=== PATIENT | male | born 1975 | race Caucasian/White ===

== ENCOUNTER 2018-11-28 13:51 | Emergency (ER) | payer SELFPAY ==
[2018-11-28] MEDS ORDERED: Aspirin 81 mg CHEW TAB* 81 MG TAB.CHEW PO ONE (14:22)
--- NOTE | 2018-11-28 14:32 | UC ---
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 about shelter there, he pulled over and took a nap. 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 they splashed him with cool water. a son of one of the coaches drove him here. he states "I think I was drinking enough". he admits to having some mild cramping in the thighs. he denies cp, sob and diarrhea. BP at triage was 200/114 and pt admits to HTN and but has not taken his medications for a couple of days because they are at home. - History of Current Complaint Chief Complaint: UCGeneralIllness Stated Complaint: HEAT EXHAUSTION Time Seen by Provider: 11/28/18 13:59 Hx Obtained From: Patient Hx From Patient Unobtainable Due To: Other - pt is vague and becomes agitated with attempts to gain indepth hx. Timing: Constant Pain Intensity: 0 Associated Signs & Symptoms: Negative: Abdominal Pain, Cough, Chest Pain, Headache, SOB - Allergy/Home Medications Allergies/Adverse Reactions: Allergies Allergy/AdvReac Type Severity Reaction Status Date / Time No Known Allergies Allergy Verified 11/28/18 13:59 Home Medications: Home Medications Atenolol/Chlorthalidone [Atenolol/Chlorthalidone 100-25 mg-] 1 tab PO DAILY [History Confirmed 11/28/18] Atorvastatin* [Lipitor*] 40 mg PO DAILY 11/28/18 [History Confirmed 11/28/18] Citalopram TAB* [CeleXA TAB*] 20 mg PO DAILY 11/28/18 [History Confirmed ] Diclofenac Sodium EC TAB* [Voltaren EC TAB*] 25 mg PO BID 11/28/18 [History Confirmed 11/28/18] Ergocalciferol (Vitamin D2) [Vitamin D2] 50 mcg PO WE 11/28/18 [History Confirmed 11/28/18] HYDROcodone/ACETAMIN 5-325 MG* [[place] 5-325 TAB*] 1 tab PO Q6H PRN 11/28/18 [ History Confirmed 11/28/18] Levothyroxine TAB* [Synthroid TAB*] 75 mcg PO DAILY 11/28/18 [History Confirmed 11/28/18] Losartan Potassium 100 mg PO DAILY 11/28/18 [History Confirmed 11/28/18] Spironolactone TAB* [Aldactone TAB*] 25 mg PO BID 11/28/18 [History Confirmed ] amLODIPine TAB* [Norvasc 5 mg TAB*] 10 mg PO DAILY 11/28/18 [History Confirmed 11/28/18] hydrALAZINE TAB* [Apresoline TAB*] 50 mg PO TID 11/28/18 [History Confirmed ] PMH/Surg Hx/FS Hx/Imm Hx - Additional Past Medical History Additional PMH: Back pain. Endocrine History: Thyroid Disease, Dyslipidemia Cardiovascular History: Hypertension - Surgical History Surgical History: None - Family History Known Family History: Positive: Unknown - pt agitated and cites can't recall - Social History Lives: With Family Alcohol Use: Occasionally Substance Use Type: None Smoking Status (MU): Never Smoked Tobacco Review of Systems All Other Systems Reviewed And Are Negative: Yes Constitutional: Positive: Fatigue. Negative: Fever Respiratory: Negative: Shortness Of Breath, Cough Cardiovascular: Negative: Palpitations, Chest Pain Gastrointestinal: Positive: Vomiting. Negative: Abdominal Pain, Diarrhea, Nausea Musculoskeletal: Positive: Other: - MM CRAMPS TO THIGHS Physical Exam Triage Information Reviewed: Yes Appearance: Well-Appearing Vital Signs: Initial Vital Signs Temp 98.3 F 11/28/18 13:55 Pulse 72 11/28/18 13:55 Resp 16 11/28/18 13:55 BP 200/114 11/28/18 13:55 Pulse Ox 99 11/28/18 13:55 Vital Signs Reviewed: Yes Eyes: Positive: Conjunctiva Clear, Other: - PERRL, EOMI ENT: Positive: Pharynx normal, TMs normal, Other - Lips and tonue look dry.. Negative: Nasal congestion, Nasal drainage Neck: Positive: Supple, Nontender, No Lymphadenopathy Respiratory: Positive: Lungs clear, Normal breath sounds, No respiratory distress Cardiovascular: Positive: RRR - with extra beats, No Murmur, Pulses Normal. Negative: Tachycardia Abdomen Description: Positive: Nontender, No Organomegaly, Soft Bowel Sounds: Positive: Present Musculoskeletal: Positive: ROM Intact, Edema @ Neurological: Positive: Other: - Alert and oriented. CN 2-12 grossly intact. Gross s/v/m intactx4. steady gait to the exam room. Psychological: Positive: Other: - easily agitated by questioning. Skin Exam: Other - Flushed and warm. 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 Skin: Negative: Rashes Diagnostics - Laboratory Lab Results: FS [id number] - EKG Cardiac Rate: NL Cardiac Rhythm: Sinus: Normal Ectopy: PVCs - ST elevation V2, V3. Twave inversion V4-V6. ST Segment: Non-Specific Summary of EKG Findings: ST elevation V2, V3. T wave inversion V4-V6. Course/Dx - Course Course Of Treatment: EKG D/W Dr Ramires. Given the pt's BP, ST changes and PVC's on Ekg plus current s/s's Dr Ramires suggests transfer to a facility with a laboratory technician. At pt request, I spoke to his on his cell phone and she request he go to [facility] where they have family close by. Pt agrees with this as well. [facility] [place]. charge nurse not available thus report given to one of the ER floor nurses. i advised of hx, PE and EKG results plus pt coming via [facility]. - Differential Dx - Multi-Symptom Differential Diagnoses: Other - hypertensive urgency, heat related illness, cardiac pathology. - Diagnoses Provider Diagnosis: Hypertension, uncontrolled, Fatigue, Vomiting, Abnormal EKG Discharge - Sign-Out/Discharge Documenting (check all that apply): Patient Departure All imaging exams completed and their final reports reviewed: No Studies - Discharge Plan Condition: Stable Disposition: TRANS HIGHER LVL OF CARE FAC Referrals: Camacho Clark MD [Medical Doctor] - - Billing Disposition and Condition Condition: STABLE Disposition: Trans Higher Lvl of Care Fac - Attestation Statements Provider Attestation: I was available for consult. This patient was seen by the VISHAL. The patient was not presented to and plan of care including EKG was discussed with me . Patient was not seen by or examined by me . Patient transferred to ER via ambulance. -Fnu MD Keyla
[2018-11-28 14:38] VITALS: BP 210/124
[2018-11-28] MEDS ORDERED: Aspirin 81 mg CHEW TAB* 81 MG TAB.CHEW ONE (14:46)
== END 2018-11-28 14:38 | disposition short-term general hospital (02) ==
LOC: UCCORT 13:51
DX: I10 Essential (primary) hypertension (principal); R53.83 Other fatigue; R11.10 Vomiting, unspecified; R94.31 Abnormal electrocardiogram [ECG] [EKG]; E07.9 Disorder of thyroid, unspecified; Z91.14 Patient's other noncompliance with medication regimen
CPT/HCPCS: 93005; 99203; A9270-GY; G0463

== ENCOUNTER 2018-11-28 15:25 | Emergency (ER) | payer SELFPAY ==
[2018-11-28] MEDS ORDERED: amLODIPine TAB* 5 MG PO ONE (16:44)
[2018-11-28] MEDS ORDERED: NS 0.9% 1000 ML** 2,000 ML IV ONE (16:44)
[2018-11-28] MEDS ORDERED: hydrALAZINE IV* 20 MG/ML VIAL IV SLOW PU ONE (17:17)
[2018-11-28 17:28] LABS: ABS Basophils 0.1 10^3/ul (0-0.2); ABS Eosinophils 0.2 10^3/ul (0-0.6); ABS Lymphocytes 2.2 10^3/ul (1.0-4.8); ABS Monocytes 0.4 10^3/ul (0-0.8); ABS Neutrophils 4.7 10^3/ul (1.5-7.7); Eosinophil % 2.2 %; Hematocrit 46 % (42-52); Hemoglobin 16.2 g/dL (14.0-18.0); Lymphocyte % 28.8 %; Mean Corpuscular HGB Conc 35 g/dL (31-36); Mean Corpuscular Hemoglobin 30 pg (27-31); Mean Corpuscular Volume 86 fL (80-94); Mean Platelet Volume 10.4 fL (7.4-10.4); Nucleated Red Blood Cells % 0.1; Platelet Count 218 10^3/uL (150-450); Red Cell Distribution Width 15 % (10-15); White Blood Count 7.5 10^3/uL (3.5-10.8)
[2018-11-28 17:36] LABS: Activated Partial Thrombo Time 34.3 seconds (26.0-38.0); INR 0.99 (0.82-1.09)
--- NOTE | 2018-11-28 17:37 | ED ---
Hypertension - HPI Summary HPI Summary: Pt is a 43 y/o M presenting to the ED with a chief complaint of HTN. 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 He denies CP , dizziness, MILLAN, speech changes, visual changes, AMS, myalgia, abd pain, as well as hx of CVA or NH. Vital signs while in room: BP 203/121, HR 77bpm, SaO2 98% on room air. Home Medications Medication Instructions Recorded Confirmed Type Atenolol/Chlorthalidone 1 tab PO DAILY 11/28/18 11/28/18 History [Atenolol/Chlorthalidone 100-25 mg-] Atorvastatin* [Lipitor*] 40 mg PO DAILY 11/28/18 11/28/18 History Citalopram TAB* [CeleXA TAB*] 20 mg PO DAILY 11/28/18 11/28/18 History Diclofenac Sodium EC TAB* 25 mg PO BID 11/28/18 11/28/18 History [Voltaren EC TAB*] Ergocalciferol (Vitamin D2) 50 mcg PO WE 11/28/18 11/28/18 History [Vitamin D2] HYDROcodone/ACETAMIN 5-325 MG* 1 tab PO Q6H PRN 11/28/18 11/28/18 History [[place] 5-325 TAB*] Levothyroxine TAB* [Synthroid TAB*] 75 mcg PO DAILY 11/28/18 11/28/18 History Losartan Potassium 100 mg PO DAILY 11/28/18 11/28/18 History Spironolactone TAB* [Aldactone 25 mg PO BID 11/28/18 11/28/18 History TAB*] amLODIPine TAB* [Norvasc 5 mg TAB*] 10 mg PO DAILY 11/28/18 11/28/18 History hydrALAZINE TAB* [Apresoline TAB*] 50 mg PO TID 11/28/18 11/28/18 History - History of Current Complaint Chief Complaint: EDDysrhythmPalp Stated Complaint: "HEAT RELATED PER EMS" Hx Obtained From: Patient Onset/Duration: Started Hours Ago, Resolved Timing: Intermittent, Lasting Minutes Aggravating Factor(s): Nothing Alleviating Factor(s): Other - cool water Associated Signs & Symptoms: Negative - Allergies/Home Medications Allergies/Adverse Reactions: Allergies Allergy/AdvReac Type Severity Reaction Status Date / Time No Known Allergies Allergy Verified 11/28/18 13:59 PMH/Surg Hx/FS Hx/Imm Hx Previously Healthy: Yes Endocrine/Hematology History: Reports: Hx Thyroid Disease Cardiovascular History: Reports: Hx Hypertension - Surgical History Surgical History: Yes Surgery Procedure, Year, and Place: appendectomy, broken arm Infectious Disease History: No Infectious Disease History: Denies: Traveled Outside the [place] in Last 30 Days - Family History Known Family History: Negative: Hypertension - Social History Alcohol Use: Occasionally Hx Substance Use: No Substance Use Type: Reports: None Hx Tobacco Use: No Smoking Status (MU): Never Smoked Tobacco Review of Systems Negative: Chest Pain Positive: Vomiting, Nausea. Negative: Abdominal Pain Negative: Myalgia Neurological: Negative - dizziness Negative: Headache All Other Systems Reviewed And Are Negative: Yes Physical Exam - Summary Physical Exam Summary: Appearance: Ill-appearing, moderate pain distress, well-nourished Skin: Warm, color reflects adequate perfusion, dry Head: Normal Head/Face inspection, atraumatic Eyes: Conjunctiva clear ENT: Normal inspection Neck: Supple, no nodes, no JVD Respiratory: Lungs clear, normal breath sounds, no respiratory distress Cardio: RRR, No murmur, pulses normal, brisk capillary refill Abdomen: Soft, nontender Bowel sounds: Present Musculoskeletal: Strength Intact/ROM intact, no calf tenderness, no edema. Psychological: Normal Neuro: Alert, muscle tone normal, no focal deficit Triage Information Reviewed: Yes Vital Signs On Initial Exam: Initial Vitals Pulse Pulse Ox 65 98 11/28/18 15:29 11/28/18 15:29 Vital Signs Reviewed: Yes Diagnostics - Vital Signs Vital Signs Temp Pulse Resp BP Pulse Ox 11/28/18 17:14 97 11/28/18 17:01 63 16 99 11/28/18 16:31 15 203/121 11/28/18 16:01 63 14 182/117 95 11/28/18 15:32 60 13 211/126 96 11/28/18 15:30 98.8 F 65 20 211/126 96 11/28/18 15:29 65 98 - Laboratory Lab Results: Lab Results 07/21/19 Range/Units 17:20 WBC 7.5 (3.5-10.8) 10^3/uL RBC 5.40 (4.18-5.48) 10^6 /uL Hgb 16.2 (14.0-18.0) g/dL Hct 46 (42-52) % MCV 86 (80-94) fL MCH 30 (27-31) pg MCHC 35 (31-36) g/dL RDW 15 (10-15) % Plt Count 218 (150-450) 10^3/uL MPV 10.4 (7.4-10.4) fL Neut % (Auto) 62.6 % Lymph % (Auto) 28.8 % [place] % (Auto) 5.5 % Eos % (Auto) 2.2 % Baso % (Auto) 0.9 % Absolute Neuts (auto) 4.7 (1.5-7.7) 10^3/ul Absolute Lymphs (auto) 2.2 (1.0-4.8) 10^3/ul Absolute Monos (auto) 0.4 (0-0.8) 10^3/ul Absolute Eos (auto) 0.2 (0-0.6) 10^3/ul Absolute Basos (auto) 0.1 (0-0.2) 10^3/ul Absolute Nucleated RBC 0.0 10^3/ul Nucleated RBC % 0.1 Result Diagrams: 11/28/18 17:20 11/28/18 17:20 Lab Statement: Any lab studies that have been ordered have been reviewed, and results considered in the medical decision making process. - Radiology CXR Radiology Interpretation Completed By: ED Physician Summary of Radiographic Findings: No acute disease, pending official radiology report. - CT Brain CT CT Interpretation Completed By: Radiologist Summary of CT Findings: No acute intracranial mass or hemorrhage is noted. ED physician has reviewed this report. - EKG 1848 Cardiac Rate: NL - 65bpm EKG Rhythm: 1st Degree HB ST Segment: Non-Specific Ectopy: None EKG Comparison: No Significant Change Summary of EKG Findings: EKG at 1848 shows NSR 65 1st deg AV block (204), prolonged IV CT (112), nml QTc, and nml axis. No acute changes. No change from earlier today at 14:10 or from 04/12/07. ED MD has reviewed and interpreted this EKG. Re-Evaluation - Re-Evaluation First Eval Re-Evaluation Time: 18:30 Change: Unchanged Comment: BP remains elevated but pt remains asymptomatic. Has not had full 2 L of hydration, and face is still flushed, and pt is c/o chills. Will give metoprolol as pt missed he usual dose of atenolol/chlorthalidone. Will continue hydration. remains with pt. Will sign pt out to Dr. Lal for continued evaluation at change of shift. Hypertension Course/Dx - Course Course Of Treatment: Pt is a 43 y/o M presenting to the ED with a chief complaint of HTN. 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 He denies CP, dizziness, MILLAN, speech changes, AMS, myalgia, abd pain , as well as hx of CVA or NH. Vital signs while in room: BP 203/121, HR 77bpm, SaO2 98% on room air. Pt's physical exam is nml. His blood pressure is high, and his sx correlate with a hypertensive emergency. Brain CT shows no acute intracranial mass or hemorrhage. CXR shows no acute disease, pending official radiology report. EKG at 1848 shows NSR 65 1st deg AV block (204), prolonged IV CT (112), nml QTc, and nml axis. No acute changes. No change from earlier today at 14:10 or from 04/12/07. ED MD has reviewed and interpreted this EKG. Pt will be signed out to Dr. Lal at 1900 on 11/28/18 pending blood pressure returning to more normal levels for him and for continuing hydration. - Diagnoses Differential Diagnosis/HQI PQRI: Cerebral Bleed, Hypertensive Crisis, Other - heat stroke Provider Diagnoses: Heat exhaustion, Hypertensive urgency, Hypokalemia, Elevated troponin - Critical Care Time Critical Care Time: 30-74 min Discharge - Sign-Out/Discharge Documenting (check all that apply): Sign-Out Patient - BP stabilization Signing out patient TO: Anjelica Lal - 11/28/18, 190 - Discharge Plan Condition: Stable Disposition: HOME Patient Education Materials: Heat Exhaustion (ED) Referrals: Camacho Clark MD [Primary Care Provider] - 3 Days Additional Instructions: Follow up with primary care provider within 3 days. PLEASE RETURN TO THE ED IMMEDIATELY FOR WORSENING OR CONCERNING SYMPTOMS. - Billing Disposition and Condition Condition: STABLE Disposition: Home - Attestation Statements Document Initiated by Danielaibalex: Yes Documenting Scribe: Deepthi Mathis Provider For Whom Cassidy is Documenting (Include Credential): Dr. Augusta Causey MD. Scribe Attestation: Deepthi Smith, scribed for Dr. Augusta Causey MD. on 11/28/18 at 2240. Scribe Documentation Reviewed: Yes Provider Attestation: The documentation as recorded by the danielaibDeepthi johnson accurately reflects the service I personally performed and the decisions made by me, Dr. Augusta Causey MD. Status of Scribe Document: Viewed
[2018-11-28 17:45] LABS: ALT 40 U/L (7-52); AST 29 U/L (13-39); Albumin 4.9 g/dL (3.2-5.2); Albumin/Globulin Ratio 1.8 (1-3); Alkaline Phosphatase 35 U/L (34-104); Anion Gap 10 mmol/L (2-11); BUN/Creatinine Ratio 16.7 (8-20); Blood Urea Nitrogen 16 mg/dL (6-24); CO2 Carbon Dioxide 29 mmol/L (22-32); Calcium 10.7 mg/dL (8.6-10.3); Chloride 99 mmol/L (101-111); Creatine Kinase 383 U/L (10-223); EGFR African American 104.4 (>60); EGFR Non-African American 86.3 (>60); Globulin 2.8 g/dL (2-4); Glucose 113 mg/dL (70-100); Potassium 3.2 mmol/L (3.5-5.0); Sodium 138 mmol/L (135-145); Total Protein 7.7 g/dL (6.4-8.9)
[2018-11-28 17:45] LABS: Urine Appearance Clear; Urine Bacteria Absent (Absent); Urine Bilirubin Negative (Negative); Urine Blood Negative (Negative); Urine Color Straw; Urine Glucose Negative (Negative); Urine Ketones Negative (Negative); Urine Nitrite Negative (Negative); Urine Protein 1+(30 mg/dL) (Negative); Urine Red Blood Cell Trace(0-2/hpf) (Absent); Urine Specific Gravity 1.006 (1.010-1.030); Urine Urobilinogen Negative (Negative); Urine White Blood Cell Trace(0-5/hpf) (Absent)
[2018-11-28 17:50] LABS: CKMB ng/mL 4.7 ng/mL (0.6-6.3)
[2018-11-28 17:53] LABS: Troponin I 0.04 ng/mL (<0.04)
[2018-11-28] MEDS ORDERED: Metoprolol Tartrate IV* 1 MG/ML 5 ML VIAL IV ONE (18:27)
[2018-11-28] MEDS ORDERED: HYDROcodone/ACETAMIN 5-325 MG* 1 TAB PO ONE (20:18)
[2018-11-28] MEDS ORDERED: Potassium Chlor TAB* 20 MEQ TAB.ER PO ONE (20:35)
--- NOTE | 2018-11-28 20:39 | ED ---
Progress - Progress Note Progress Note: Patient is a sign out from Dr. Causey to Dr. Lal waiting on blood pressure to go down after heat stroke and receiving a lot of medications in the ED. Course/Dx - Course Course Of Treatment: Patient is a sign out from Dr. Causey to Dr. Lal 11/28/18 pending blood pressure to return to normal levels after heat stroke and receiving a lot of medications in the ED. Physician discusses discharge with patient upon blood pressure returning to normal. Patient agrees with discharge and will be discharged. Patient will follow up with primary care provider within 3 days. - Diagnoses Provider Diagnoses: Heat exhaustion - Critical Care Time Critical Care Time: 30-74 min Discharge - Sign-Out/Discharge Documenting (check all that apply): Patient Departure - discharge Patient Received Moderate/Deep Sedation with Procedure: No - Discharge Plan Condition: Stable Disposition: HOME Patient Education Materials: Heat Exhaustion (ED) Referrals: Camacho Clark MD [Primary Care Provider] - 3 Days Additional Instructions: Follow up with primary care provider within 3 days. PLEASE RETURN TO THE ED IMMEDIATELY FOR WORSENING OR CONCERNING SYMPTOMS. - Attestation Statements Document Initiated by Scribe: Yes Documenting Scribe: Magda Matta Provider For Whom Scribe is Documenting (Include Credential): Anjelica Lal MD Scribe Attestation: Magda Smith, scribed for Anjelica Lal MD on 11/28/18 at 2043.
[2018-11-28 21:23] VITALS: BP 180/103
== END 2018-11-28 21:21 | disposition home or self-care (01) ==
LOC: ED 15:25
DX: T67.5XXA Heat exhaustion, unspecified, initial encounter (principal); I16.0 Hypertensive urgency; E87.6 Hypokalemia; R79.89 Other specified abnormal findings of blood chemistry; X32.XXXA Exposure to sunlight, initial encounter; Y93.64 Activity, baseball; Y92.320 Baseball field as the place of occurrence of the external cause; Z79.899 Other long term (current) drug therapy
CPT/HCPCS: 36415; 70450; 71045; 80053; 81003; 81015; 82550; 82553; 83605; 83880; 84484; 85025; 85610; 85730; 87086; 93005; 96361; 96374; 96375; 99283; A9270-GY; J0360; J3490